=== PATIENT | female | born 1995 | race Caucasian/White ===

== ENCOUNTER 2024-07-15 21:45 | Emergency (ER) | payer MEDICAID, SELFPAY ==
[2024-07-15 21:49] VITALS: BP 108/76; PULSE 102; RESP 20; TEMP 36.1; O2SAT 99; BMI 18.0
--- NOTE | 2024-07-15 22:45 | CRLHL7_ITS ---
For Patients: As a result of the Century Cures Act, medical imaging exams and procedure reports are released immediately into your electronic medical record. You may view this report before your referring provider. If you have questions, please contact your health care provider. INDICATION: Upper abdominal pain. TECHNIQUE: CT of the abdomen and pelvis acquired with 51 cc Isovue 370 IV contrast. Coronal and sagittal reconstructions. COMPARISON: None. FINDINGS: Lower chest: Unremarkable. Liver: Normal in size and attenuation. No suspicious masses. Gallbladder and bile ducts: Unremarkable. No biliary dilation. Spleen: Unremarkable. Pancreas: Unremarkable. Adrenal glands: Unremarkable. Kidneys, Ureters, and Bladder: Symmetric enhancement. No hydronephrosis or obstructing stones. No significant bladder wall thickening. Pelvic phleboliths. Reproductive organs: Uterus is unremarkable. Small follicles in both ovaries. GI tract/Peritoneum: Mild wall thickening of the gastric antrum. No small bowel dilation. Large amount of stool throughout the colon. The appendix is not definitely identified, however there are no secondary signs of inflammation in the right lower quadrant. No intraperitoneal free air. Trace free fluid in the pelvis is likely physiologic. Vasculature: Abdominal aorta is normal in caliber. Mesenteric arteries appear patent. Lymph nodes: No lymphadenopathy. Abdominal Wall: Unremarkable. Bones: Left convex thoracolumbar curve. IMPRESSION: 1. Mild wall thickening of the gastric antrum is likely inflammatory. 2. Large stool burden. 3. No other acute findings in the abdomen or pelvis. Please note that all CT scans at this facility use dose modulation, iterative reconstruction, and/or weight-based dosing when appropriate to reduce radiation dose to as low as reasonably achievable. Dictated by Yumiko Garcia MD @ 07/15/2024 11:49:23 PM (Electronically Signed)
--- NOTE | 2024-07-15 22:48 | ED.ABDPAIN ---
HPI - Abdominal Pain General Chief Complaint: Abdominal Pain Stated Complaint: severe abdominal pain, vomiting Time Seen by Provider: 07/15/24 22:34 History of Present Illness HPI narrative: This 28-year-old female comes in reporting upper epigastric abdominal pain that includes nausea with some vomiting. The symptoms began today. She states that she has been having episodes of pain on and off like this over the past few years. She has been to a corporation lawyer and OBGYN physician. She has had ultrasound imaging done of her lower abdomen and pelvis a few years ago. There is no findings to explain these recurrent symptoms on these tests. The patient does not report any fever. She has not had any diarrhea. She denies any possibility of . She is otherwise in good health. Related Data Home Medications ?Medication ?Instructions ?Recorded ?Confirmed acetaminophen [Tylenol] PO 02/12/24 02/12/24 [id number] PO 02/12/24 02/12/24 [Excedrin Migraine] dicyclomine 20 mg tablet 20 mg PO BID 02/12/24 02/12/24 Previous Rx's ?Medication ?Instructions ?Recorded pantoprazole 20 mg tablet,delayed 20 mg PO DAILY #30 tabs 07/16/24 release (Protonix) Allergies Allergy/AdvReac Type Severity Reaction Status Date / Time No Known Drug Allergies Allergy Verified 02/12/24 10:10 Review of Systems Status of ROS Reports: 10 or more systems reviewed and unremarkable except as noted in History and below Narrative Constitutional: No fevers, no weight gain or loss. Eyes: No discharge. No vision changes. HENT: No congestion, no sore throat, no ear pain. Cardiovascular: No chest pain, no palpitations. Respiratory: No shortness of breath, no wheezes, no cough. Gastrointestinal: Upper epigastric abdominal pain that seems to radiate through to the back somewhat. Nausea with vomiting. No diarrhea. Genitourinary: No dysuria, no hematuria. Musculoskeletal: Normal range of motion. Skin: No rashes, no pruritis. Neurological: No dizziness, weakness, sensory change, speech change. Endo/Heme/Allergies: No bruising or bleeding. No polydipsia. Pysch: no suicidality, no anxiety, no insomnia. All other systems reviewed and are negative. PFSH PFSH Social History Smoking Status: Never smoker How often do you have a drink containing alcohol: monthly or less AUDIT-C Alcohol total score: 1 Non-prescribed substance use: denies use Exam Narrative: Exam Narrative: Constitutional: Well-developed, well-nourished, no acute distress. HEENT: Normocephalic, atraumatic. Neck: Normal range of motion. Nontender. Supple. Heart: Regular. No murmurs. Normal rate. Intact distal pulses. Lungs: Clear to auscultation. No chest discomfort. No wheezes, rhonchi, or rales. Abdomen: Normal bowel sounds. Diffuse upper epigastric tenderness. No rebound tenderness. Genitalia: Deferred. Back: No midline tenderness. Normal range of motion. Extremities: Normal range of motion. No injury. Skin: Intact. No rash. Warm. No erythema or pallor. Neurologic: No altered sensation. No weakness. Alert and oriented. Psychiatric: No suicidality. No anxiety or depression. No insomnia. Nursing notes and vitals signs are reviewed. Const: Vital Signs, click to edit/add: Vital Signs - 24 hr 07/15/24 21:49 Temperature 97.0 F L Pulse Rate [Left P ulse Oximeter] 102 H Respiratory Rate 20 Blood Pressure [Ri ght Upper Arm] 108/76 Pulse Oximetry 99 Oxygen Delivery Me thod Room Air Course Vital Signs Vital signs: Initial Vital Signs Temperature 97.0 F L 07/15/24 21:49 Temperature Source Temporal Artery Scan 07/15/24 21:49 Pulse Rate 102 H 07/15/24 21:49 Pulse Rhythm Regular 07/15/24 21:49 Respiratory Rate 20 07/15/24 21:49 Blood Pressure 108/76 07/15/24 21:49 Blood Pressure Mean 86 07/15/24 21:49 Blood Pressure Position Sitting 07/15/24 21:49 Pulse Oximetry 99 07/15/24 21:49 Oxygen Delivery Method Room Air 07/15/24 21:49 Vital Signs Temperature 97.0 F L 07/15/24 21:49 Pulse Rate 102 H 07/15/24 21:49 Respiratory Rate 20 07/15/24 21:49 Blood Pressure 108/76 07/15/24 21:49 Pulse Oximetry 99 07/15/24 21:49 Oxygen Delivery Method Room Air 07/15/24 21:49 Temperature 97.0 F L 07/15/24 21:49 Pulse Rate 102 H 07/15/24 21:49 Respiratory Rate 20 07/15/24 21:49 Blood Pressure 108/76 07/15/24 21:49 Pulse Oximetry 99 07/15/24 21:49 Oxygen Delivery Method Room Air 07/15/24 21:49 Medications Administered Medications: Discontinued Medications Generic Name Dose Route Start Last Admin Trade Name Cassie PRN Reason Stop Dose Admin Sodium Chloride 500 mls @ 500 mls/hr 07/15/24 22:45 07/15/24 23:41 0.9 % Sodium Chloride 500 Ml IV 07/15/24 23:44 Infused .Q1H ONE Infusion Ketorolac Tromethamine 15 mg 07/15/24 22:45 07/15/24 23:06 Ketorolac 30 Mg/Ml Inj IVP 07/15/24 22:46 15 mg ONCE ONE Administration Ondansetron HCl 4 mg 07/15/24 22:45 07/15/24 23:06 Ondansetron 2 Mg/Ml Inj IVP 07/15/24 22:46 4 mg ONCE ONE Administration MDM - Abdominal Pain MDM Narrative Medical decision making narrative: This patient comes in with upper epigastric pain as described above. An IV was established and she did received doses of Toradol and Zofran which brought relief to her symptoms. She has been having recurrent pain like this and is requesting CT imaging. I did also UE use bedside ultrasound to look at her gallbladder and saw normal anatomy there. CT scan also returns with no explanation for her pain. She does have a large amount of stool in her bowels which may explain some symptoms. Her pain was primarily upper epigastric. I did prescribe Protonix and recommended that she follow with Gastroenterology or consider an endoscopy if pain is persistent. Lab Data Labs: Lab Results 07/15/24 07/15/24 Range/Units 22:35 23:00 WBC 16.42 H (4.50-11.00) K/uL RBC 4.41 (4.00-5.20) m/uL Hgb 13.6 (12.0-16.0) gm/dL Hct 40.8 (33.0-51.0) % MCV 93 (80-100) fL MCH 31 (26-34) pg MCHC 33 (32-36) gm/dL RDW Coeff of Mitzi 11.8 (11.5-15.5) % Plt Count 256 (140-440) K/uL Neut % (Auto) 90.0 H (42.0-72.0) % Lymph % (Auto) 4.9 L (20-44) % [facility] % (Auto) 3.4 (0.0-11.0) % Eos % (Auto) 0.1 (0.0-7.0) % Baso % (Auto) 0.1 (0.0-3.0) % Neut # (Auto) 14.80 H (1.7-7.0) K/uL Lymph # (Auto) 0.80 L (0.90-2.90) K/uL [facility] # (Auto) 0.60 (0.00-0.90) K/UL Eos # (Auto) 0.00 (0.00-0.50) K/uL Baso # (Auto) 0.00 (0.00-0.30) K/uL Abs Immat Gran (auto) 0.20 (0.00-0.30) K/uL Imm/Tot Granulo (auto) 1.5 % ESR 2 (2-20) mm/hr Sodium 138 (135-149) mmol/L Potassium 3.9 (3.6-5.1) mmol/L Chloride 104 (96-114) mmol/L Carbon Dioxide 25 (20-32) mmol/L Anion Gap 9 (7-15) mEq/L BUN 18 (5-24) mg/dL Creatinine 0.6 (0.5-1.5) mg/dL Estimated Creat Clear 113.93 Estimated GFR 125 ml/min Glucose 112 (60-115) mg/dL Calcium 9.4 (8.4-10.6) mg/dL Total Bilirubin 2.6 H (0.1-1.5) mg/dL Direct Bilirubin 0.0 (0.0-0.5) mg/dL AST 30 (12-35) U/L ALT 22 (4-35) U/L Alkaline Phosphatase 57 (40-150) U/L Total Protein 8.0 (6.0-8.3) g/dL Albumin 4.9 (3.3-5.0) g/dL Lipase 109 (23-300) U/L Urine Color Yellow (Yellow) Urine Appearance Cloudy A (Clear) Urine pH 6.0 (5.0-8.5) Ur Specific [place] >= 1.030 (1.000-1.030) Urine Protein 1+ A (Negative) Urine Glucose (UA) Negative (Negative) Urine Ketones 4+ A (Negative) Urine Blood 1+ A (Negative) Urine Nitrite Negative (Negative) Urine Bilirubin Negative (Negative) Urine Urobilinogen 0.2 (0.2-1.0) Ur Leukocyte Esterase Negative (Negative) Urine RBC 0-2 (0-2) Urine WBC 0-2 (0-5) Ur Squamous Epith Cells Moderate A (None-Few) Amorphous Sediment Few A (None) Urine Bacteria Moderate A (None) Urine Mucus Moderate A (None) Urine HCG, Qual Negative (Negative) Imaging Data CT scan - abdomen: Radiologist's impression: 1. Mild wall thickening of the gastric antrum is likely inflammatory. 2. Large stool burden. 3. No other acute findings in the abdomen or pelvis. Discharge Plan Discharge Clinical Impression: Abdominal pain Patient Disposition: Home, Self-Care Condition: Improved Additional Instructions: Take medication as prescribed. Follow up with MD. consider endoscopies if not improving. Return if worsening. Prescriptions: New pantoprazole [Protonix] 20 mg tablet,delayed release (DR/EC) 20 mg PO DAILY Qty: 30 2RF No Action dicyclomine 20 mg tablet 20 mg PO BID acetaminophen [Tylenol] PO [id number] [Excedrin Migraine] PO Follow Up/Referrals: Provider,Not a Local [Primary Care Provider] - Stand Alone Forms: [facility] Info Instructions
[2024-07-15 22:52] LABS: Appearance Urine Cloudy (Clear); Bilirubin Urine Negative (Negative); Blood Urine 1+ (Negative); Color Urine Yellow (Yellow); Glucose Urine Negative (Negative); Ketones Urine 4+ (Negative); Leukocyte Esterase Urine Negative (Negative); Nitrite Urine Negative (Negative); Protein Urine 1+ (Negative); Specific Gravity Urine >= 1.030 (1.000-1.030); Urobilinogen Urine 0.2 (0.2-1.0)
[2024-07-15] MEDS: 0.9 % SODIUM CHLORIDE 500 ML 500 ML IV (23:05)
[2024-07-15] MEDS: KETOROLAC 30 MG/ML inj 15 MG IVP (23:06)
[2024-07-15] MEDS: ONDANSETRON 2 MG/ML inj 4 MG IVP (23:06)
[2024-07-15 23:10] LABS: Ur HCG Qualitative* Negative (Negative)
[2024-07-15 23:11] LABS: Basophils Percent Auto 0.1 % (0.0-3.0); Eosinophils Percent Auto 0.1 % (0.0-7.0); Hematocrit 40.8 % (33.0-51.0); Hemoglobin* 13.6 gm/dL (12.0-16.0); Immature Granulocytes Pct Auto 1.5 %; Lymphocytes Percent Auto 4.9 % (20-44); Mean Corpuscular HGB Conc 33 gm/dL (32-36); Mean Corpuscular Hemoglobin 31 pg (26-34); Mean Corpuscular Volume 93 fL (80-100); Monocytes Percent Auto 3.4 % (0.0-11.0); Platelet Count* 256 K/uL (140-440); RDW Coefficient of Variation % 11.8 % (11.5-15.5); Red Blood Count 4.41 m/uL (4.00-5.20); Slide Review Reflex No; White Blood Count* 16.42 K/uL (4.50-11.00)
[2024-07-15 23:12] LABS: Amorphous Sediment Urine Few; Bacteria Urine Moderate; Mucus Urine Moderate; RBC Urine 0-2 (0-2); Squamous Epithelial Cell Urine Moderate (None-Few); WBC Urine 0-2 (0-5)
[2024-07-15 23:17] LABS: Albumin* 4.9 g/dL (3.3-5.0); Chloride* 104 mmol/L (96-114); Potassium* 3.9 mmol/L (3.6-5.1); Sodium* 138 mmol/L (135-149)
[2024-07-15 23:19] LABS: Creatinine* 0.6 mg/dL (0.5-1.5); Est. Creatinine Clearance* 113.93; Estimated Glomerular Filt Rate 125 ml/min
[2024-07-15 23:20] LABS: Alanine Aminotransferase* 22 U/L (4-35); Alkaline Phosphatase* 57 U/L (40-150); Anion Gap 9 mEq/L (7-15); Aspartate Amino Transferase* 30 U/L (12-35); Bilirubin Total* 2.6 mg/dL (0.1-1.5); Blood Urea Nitrogen* 18 mg/dL (5-24); Calcium* 9.4 mg/dL (8.4-10.6); Carbon Dioxide* 25 mmol/L (20-32); Glucose* 112 mg/dL (60-115); Lipase* 109 U/L (23-300)
[2024-07-16 00:07] LABS: Erythrocyte SedimentationRate* 2 mm/hr (2-20)
== END 2024-07-16 00:25 | disposition home or self-care (01) ==
PROVIDERS: Emergency Provider Emergency Medicine Emergency Medical Services
DX: R10.9 Unspecified abdominal pain (principal)
CPT/HCPCS: 36415; 74177; 76705; 80048; 80076; 81001; 81003; 81025; 83690; 85025; 85651; 87086; 96374; 96375; 99284; 99285; J1885; J2405; J7030; Q9967